=== PATIENT | male | born 1955 | race Two or more races ===

== ENCOUNTER 2017-02-27 16:22 | Inpatient (IN) | payer MEDICAID ==
[~2017-02-27] VITALS: Ht 170.2 cm; Wt 90.7 kg
[2017-02-27] MEDS ORDERED: Sodium Chloride 500ML 500 ML IV ONE (16:31)
[2017-02-27] MEDS ORDERED: HIBICLENS118 ML DT (16:50)
[2017-02-27] MEDS ORDERED: MAGNESIUM OXID500 M2 GT (16:50)
[2017-02-27] MEDS ORDERED: TYLENOL EXTRA500 MG GT (16:50)
[2017-02-27] MEDS ORDERED: ATORVASTATIN CA20 MG GT (16:50)
[2017-02-27] MEDS ORDERED: ALBUTEROL2.5 MG/3 M INH (16:50)
[2017-02-27] MEDS ORDERED: DOCUSATE SODIU100 MG GT (16:50)
[2017-02-27] MEDS ORDERED: UTI-STAT L3875 MG/31 GT (16:50)
[2017-02-27] MEDS ORDERED: METOPROLOL TART25 MG GT (16:50)
[2017-02-27] MEDS ORDERED: ARTIFICIAL TEAR15 ML BOTH EYES (16:50)
[2017-02-27] MEDS ORDERED: CYANOCOBALAMIN5 GM GT (16:50)
[2017-02-27] MEDS ORDERED: VITAMIN D400 INTLU GT (16:50)
[2017-02-27] MEDS ORDERED: FERROUS SULFAT325 MG GT (16:50)
[2017-02-27] MEDS ORDERED: PEPCID20 MG GT (16:50)
[2017-02-27] MEDS ORDERED: VITAMIN B COMP1 EAC2 GT (16:50)
[2017-02-27] MEDS ORDERED: AMITRIPTYLINE100 MG GT (16:50)
[2017-02-27] MEDS ORDERED: LISINOPRIL40 MG GT (16:50)
[2017-02-27] MEDS ORDERED: MECLIZINE HCL12.5 MG GT (16:50)
[2017-02-27 17:02] LABS: EOSINOPHILS % (AUTO) 6.4 % (0.0-3.0); HEMATOCRIT 40.5 % (42.0-52.0); HEMOGLOBIN 13.6 G/DL (14.2-18.0); LYMPHOCYTES % (AUTO) 34.6 % (20.0-45.0); MEAN CORPUSCULAR VOLUME 85 FL (80-99); MONOCYTES % (AUTO) 9.4 % (1.0-10.0); NEUTROPHILS % (AUTO) 48.5 % (45.0-75.0); PLATELET COUNT 208 K/UL (150-450); RED BLOOD COUNT 4.74 M/UL (4.70-6.10); RED CELL DISTRIBUTION WIDTH 12.7 % (11.6-14.8); WHITE BLOOD COUNT 5.6 K/UL (4.8-10.8)
[2017-02-27 17:03] VITALS: BP 131/75
[2017-02-27 17:09] LABS: ANION GAP 7 mmol/L (5-15); BLOOD UREA NITROGEN 11 mg/dL (7-18); CALCIUM 9.3 MG/DL (8.5-10.1); CARBON DIOXIDE 30 MMOL/L (21-32); CHLORIDE 103 MMOL/L (98-107); POTASSIUM 3.9 MMOL/L (3.5-5.1); SODIUM 140 MMOL/L (136-145)
[2017-02-27 17:23] LABS: ALANINE AMINOTRANSFERASE 14 U/L (12-78); ALBUMIN 3.7 G/DL (3.4-5.0); ALBUMIN/GLOBULIN RATIO 0.9 (1.0-2.7); ALKALINE PHOSPHATASE 90 U/L (46-116); ASPARTATE AMINO TRANSFERASE 15 U/L (15-37); BILIRUBIN,TOTAL 0.6 MG/DL (0.2-1.0); CKMB < 0.5 NG/ML (0.0-3.6); CREATINE KINASE 81 U/L (26-308)
[2017-02-27] MEDS: Nitroglycerin Subl 0.4mg tab SL PRN ×2 (18:16→18:24)
--- NOTE | 2017-02-27 18:20 | Emergency Room Report ---
History of Present Illness General Chief Complaint: Chest Pain Source: Patient, Medical Record Present Illness HPI 61-year-old male presents ED for evaluation. Patient complains to nursing facility complaining of chest pain. Started approximately 30 minutes prior to arrival. Sudden onset. External, pressure-like, 10 out of 10 initially. Nonradiating. Was given nitroglycerin by EMS and states the chest pain has since improved. States pain is now 7/10. Patient recently had a trach removed. Denies fevers or chills. Denies cough. No other aggravating or relieving factors. Denies any other associated symptoms Allergies: Coded Allergies: No Known Allergies (Unverified , 02/27/17) Patient History Past Medical History: DM, HTN, COPD, other - hemplegic Past Surgical History: none Pertinent Family History: none Social History: Denies: smoking, alcohol use, drug use Immunizations: UTD Reviewed Nursing Documentation: PMH: Agreed, PSxH: Agreed Nursing Documentation-PMH Hx Hypertension: Yes - Hyperlipidemia Hx COPD: Yes Hx Diabetes: Yes Hx Cerebrovascular Accident: Yes - Hemiplegia/Hemiparesis, Intracerebral Hemorrhage Review of Systems All Other Systems: negative except mentioned in HPI Physical Exam Vital Signs Date Time Temp Pulse Resp B/P (MAP) Pulse Ox O2 Delivery O2 Flow Rate FiO2 02/27/17 16:24 68 22 143/81 99 Room Air 02/27/17 17:03 98.0 Sp02 EP Interpretation: reviewed, normal General Appearance: no apparent distress, alert, GCS 15, non-toxic Head: normocephalic, atraumatic Eyes: bilateral eye normal inspection, bilateral eye PERRL ENT: hearing grossly normal, normal pharynx, no angioedema, normal voice Neck: full range of motion, supple/symm/no masses Respiratory: chest non-tender, lungs clear, normal breath sounds, speaking full sentences Cardiovascular #1: regular rate, rhythm, no edema Cardiovascular #2: 2+ carotid (R), 2+ carotid (L), 2+ radial (R), 2+ radial (L) , 2+ dorsalis pedis (R), 2+ dorsalis pedis (L) Gastrointestinal: normal bowel sounds, non tender, soft, non-distended, no guarding, no rebound Rectal: deferred Genitourinary: normal inspection, no CVA tenderness Musculoskeletal: back normal, gait/station normal, normal range of motion, non- tender Neurologic: alert, oriented x3, responsive, motor strength/tone normal, sensory intact, speech normal Psychiatric: judgement/insight normal, memory normal, mood/affect normal, no suicidal/homicidal ideation Reflexes: 3+ bicep (R), 3+ bicep (L), 3+ tricep (R), 3+ tricep (L), 3+ knee (R) , 3+ knee (L) Skin: normal color, no rash, warm/dry, well hydrated Lymphatic: no adenopathy Medical Decision Making Diagnostic Impression: Primary Impression: ACS (acute coronary syndrome) ER Course Hospital Course 61-year-old male presents ED complaining of chest pain, improved after NTG Differential diagnoses include: [place]/unstable angina, contusion, muscle strain, PTX, rib fracture Clinical course Patient placed on stretcher. on patient monitor. After initial history and physical I ordered labs, EKG, chest x-ray, NTG labs reviewed- no leukocytosis, hb/hct stable, electrolytes ok, trop 0.011 EKG - NSR, no acute ischemic changes interpreted by me Chest x-ray- cardiomegaly PMD Mariah Medina is aware patient is here and will be admitted to Dr Barreto ( assigned hospitalist) Case discussed with Dr. Barreto and he agreed to accept the patient to his service for further care and support I. I feel this is a highly complex case requiring extensive working including EKG/Rhythm strip, Xray/CT/US, Blood/urine lab work, repeat exams while in ED, and administration of strong opiates/narcotics for pain control, admission to hospital or close patient follow up. Diagnosis - ACS admitted to telemetry in serious condition Labs Test 02/27/17 16:40 White Blood Count 5.6 K/UL (4.8-10.8) Red Blood Count 4.74 M/UL (4.70-6.10) Hemoglobin 13.6 G/DL (14.2-18.0) Hematocrit 40.5 % (42.0-52.0) Mean Corpuscular Volume 85 FL (80-99) Mean Corpuscular Hemoglobin 28.7 PG (27.0-31.0) Mean Corpuscular Hemoglobin Concent 33.5 G/DL (32.0-36.0) Red Cell Distribution Width 12.7 % (11.6-14.8) Platelet Count 208 K/UL (150-450) Mean Platelet Volume 5.9 FL (6.5-10.1) Neutrophils (%) (Auto) 48.5 % (45.0-75.0) Lymphocytes (%) (Auto) 34.6 % (20.0-45.0) Monocytes (%) (Auto) 9.4 % (1.0-10.0) Eosinophils (%) (Auto) 6.4 % (0.0-3.0) Basophils (%) (Auto) 1.0 % (0.0-2.0) Sodium Level 140 MMOL/L (136-145) Potassium Level 3.9 MMOL/L (3.5-5.1) Chloride Level 103 MMOL/L (98-107) Carbon Dioxide Level 30 MMOL/L (21-32) Anion Gap 7 mmol/L (5-15) Blood Urea Nitrogen 11 mg/dL (7-18) Creatinine 1.0 MG/DL (0.55-1.30) Estimat Glomerular Filtration Rate > 60 mL/min (>60) Glucose Level 97 MG/DL (74-106) Calcium Level 9.3 MG/DL (8.5-10.1) Total Bilirubin 0.6 MG/DL (0.2-1.0) Aspartate Amino Transf (AST/SGOT) 15 U/L (15-37) Alanine Aminotransferase (ALT/SGPT) 14 U/L (12-78) Alkaline Phosphatase 90 U/L (46-116) Total Creatine Kinase 81 U/L (26-308) Creatine Kinase MB < 0.5 NG/ML (0.0-3.6) Creatine Kinase MB Relative Index 0.6 Troponin I 0.011 ng/mL (0.000-0.056) Pro-B-Type Natriuretic Peptide 127 pg/mL (0-125) Total Protein 8.0 G/DL (6.4-8.2) Albumin 3.7 G/DL (3.4-5.0) Globulin 4.3 g/dL Albumin/Globulin Ratio 0.9 (1.0-2.7) EKG Diagnostic Results Rate: normal Rhythm: NSR ST Segments: no acute changes ASA given to the pt in ED: No - given by ems Rhythm Strip Diag. Results EP Interpretation: yes Rhythm: NSR, no PVC's, no ectopy Chest X-Ray Diagnostic Results Chest X-Ray Diagnostic Results : Chest X-Ray Ordered: Yes # of Views/Limited/Complete: 1 View Indication: Chest Pain EP Interpretation: Yes Interpretation: no consolidation, no effusion, no pneumothorax, no acute cardiopulmonary disease, other - cardiomegaly Impression: Other - cardiomegaly Electronically Signed by: Electronically signed by Abel Roland MD Last Vital Signs Date Time Temp Pulse Resp B/P (MAP) Pulse Ox O2 Delivery O2 Flow Rate FiO2 02/27/17 17:03 98.0 61 18 131/75 97 Room Air Status: improved Disposition: ADMITTED INPATIENT Condition: Serious Referrals: MARIAH MEDINA (PCP) ABEL ROLAND M.D. Feb 27, 2017 18:20
[2017-02-27] MEDS ORDERED: Morphine Sulfate 2mg/ml Inj IVP ONE (18:30)
[2017-02-27] MEDS ORDERED: FERROUS SU300 MG/5 M GT (18:35)
[2017-02-27] MEDS ORDERED: MAGNESIUM OXID400 M1 GT (18:37)
[2017-02-27 18:39] VITALS: BP 120/79
[2017-02-27] MEDS ORDERED: ACETAMINOPHEN325 M1 ORAL (18:45)
[2017-02-27] MEDS ORDERED: FAMOTIDINE20 MG GT (18:45)
[2017-02-27] MEDS ORDERED: DUONEB 0.5-3(2.53 ML HHN (18:56)
[2017-02-27] MEDS ORDERED: VITAMIN D1000 UNI1 GT (19:00)
[2017-02-27 19:30] VITALS: BP 126/74
[2017-02-27 20:40] VITALS: BP 139/88
[2017-02-27] MEDS ORDERED: dilTIAZem HCl 25mg/5ml Inj IV PRN (20:45)
[2017-02-27] MEDS ORDERED: Morphine Sulfate 2mg/ml Inj IVP PRN (20:45)
[2017-02-27] MEDS ORDERED: Enalaprilat 2.5mg/2ml Inj IV PRN (20:45)
[2017-02-27] MEDS ORDERED: Ketorolac 30mg Inj IV PRN (20:45)
[2017-02-27] MEDS ORDERED: Nitroglycerin Subl 0.4mg tab SL PRN (20:45)
[2017-02-27] MEDS ORDERED: Miralax 17gm pkt GT PRN (20:45)
[2017-02-27] MEDS ORDERED: Albuterol/Ipratropium 3ml neb HHN PRN (20:45)
[2017-02-27] MEDS ORDERED: Miralax 17gm pkt ORAL PRN (21:00)
[2017-02-27] MEDS: Heparin 5000 units/ml inj SUBQ SCH (21:56)
[2017-02-28] VITALS: BP 115/75
--- NOTE | 2017-02-28 01:15 | Consultation ---
DATE OF CONSULTATION: 02/27/2017 CONSULTING PHYSICIAN: Lindsay Medina M.D. REFERRING PHYSICIAN: Nguyen Barreto M.D. REASON FOR ADMISSION: This is a medical consultation. I was asked by Dr. Barreto to assess this 61-year-old patient prior to admission to [facility] Cardiac Observation Unit. HISTORY OF PRESENT ILLNESS: The patient is a resident of an [facility] subacute unit where he has been in stable condition over the last year. 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 He developed respiratory failure, had to be intubated and placed on mechanical ventilation. He was unable to be weaned, underwent tracheostomy and gastrostomy, and referred to subacute unit. In the subacute unit, he was nearly a year, but recently, the patient extubated himself and remained stable, well-controlled blood pressure, well-controlled diabetes. However, on the day of admission, he developed retrosternal chest pain, which was pressure-like, radiating to his neck. That was relieved by nitroglycerin. He was transferred to [facility] ER where the chest pain recurred and again was relieved by nitroglycerin. Troponin was normal, but the patient was admitted for unstable angina and angina at rest. PAST SURGICAL HISTORY: The patient underwent tracheostomy several years ago. ALLERGIES: No known drug allergies. MEDICATIONS: The patient is on aspirin 162 mg daily, amitriptyline 10 mg at bedtime, and heparin 5000 units subcutaneously q.12 h. He is on temazepam 50 mg at bedtime. He is on albuterol sulfate and ipratropium bromide inhalation therapy every 6 hours. He is on nitroglycerin sublingual 0.4 mg on a p.r.n. basis. He is on Toradol 30 mg IV push q.6 h. p.r.n. for pain. He is on morphine sulfate 2 mg IV push q.4 h. p.r.n. He is on enalapril 2.5 mg IV and diltiazem 10 mg IV on a p.r.n. basis. FAMILY HISTORY: Noncontributory. SOCIAL HISTORY: He is single. He was born in [place] and lived in [place] for many years. 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 HABITS: The patient smoked 1 pack a day for nearly 30 years ago. He denied drinking. He denied the use of illicit drugs. REVIEW OF SYSTEMS: CARDIOVASCULAR: The patient has intermittent chest pain recently. He has no shortness of breath or palpitations. He developed some dizziness today. PULMONARY: The patient has chronic cough, chronic wheezing, and chronic expectoration. GASTROINTESTINAL: His appetite is moderate. His weight is stable. He has no dysphagia or dyspepsia. No bowel movement disorder. GENITOURINARY: The patient denied any dysuria, frequency, or incontinence. Nocturia is 0 to 2. JOINT: The patient denies any pain, swelling, stiffness, cold extremities, photosensitivity, dry eyes, or alopecia. CENTRAL NERVOUS SYSTEM: His sleep is of good quality. He has no numbness, tingling, seizure disorder, and has no headache. PHYSICAL EXAMINATION: VITAL SIGNS: Blood pressure is 120/74, his pulse is 68, respirations of 14, and temperature of 98.2. HEENT: Eyes were normal. Pupils were round, equal, and reactive to light. Sclerae were white. Conjunctivae were pink. Extraocular movements were normal. Temporal arteries were palpable bilaterally. There was no bilateral temporal wasting. Visual jaimes to confrontation. Neglect sign could not be assessed. ENT, mucous membranes were not dehydrated. Auditory canals were clear and tympanic membranes could not be visualized. Nasal cavity was not congested. Nasal septum was intact. Soft palate was free of ulcerations. Pharynx was clear from exudate or tonsillar hypertrophy. Uvula cody to phonation. Tongue was moist, midline, and normally papillated. NECK: Supple. There was no goiter. No mass. No lymphadenopathy. There was no JVD. No bruits. Carotid upstroke was 2+. LUNGS: Clear. HEART: PMI was at fifth left intercostal space in midclavicular line. There was normal S1 and normal S2. There was no murmur. No arrhythmia. No S3. No S4. No pericardial rub. ABDOMEN: Soft and nontender without organomegaly. There were no masses palpable. There were normal bowel sounds without bruits. There was no guarding. No rebound tenderness. No ascites. No hernia. No CVA tenderness. Liver span was 8 cm, mostly nontender. EXTREMITIES: No cyanosis, no clubbing, and no edema. Extremities were warm. NEUROLOGICAL EXAMINATION: Reflexes in biceps, triceps, and brachioradialis were symmetric and equal. Patellar retinacula were symmetric and equal. Plantar were in extension on the right and flexion on the left. Cranial nerves II through XII were symmetric and equal. Cerebellar function, gait, [id number] and rapid alternating movements were not performed and declined by the patient. There was no tremor. No nystagmus. No extrapyramidal rigidity. Sensory exam to pinprick, cotton touch, and position were grossly normal. Motor strength was 5/5 against resistance in upper and lower extremities in proximal and distal muscles. LABORATORY DATA: His hemoglobin is 13.6, hematocrit 40.5 with MCV of 85, WBC of 5.6, and platelets are 208. His BUN and creatinine was 11 and 1.0 respectively. His sodium is 140, potassium 3.9, chloride 103, and CO2 is 30. SGOT and SGPT and alkaline phosphatase were normal. His troponin was 0.011. ProBNP was 127. Albumin was 3.7 and globulin was 4.3. IMPRESSION: The patient developed angina are rest. Serial troponin, 2D echo, and chest x-ray have been already ordered by the primary care physician. Repeat laboratory tests will be done in the morning. Lindsay Medina M.D. DR: BRIAN JOB#: [id number] CC:
[2017-02-28 04:00] VITALS: BP 113/73
[2017-02-28 07:50] LABS: BASOPHILS % (AUTO) 0.9 % (0.0-2.0); EOSINOPHILS % (AUTO) 8.1 % (0.0-3.0); HEMATOCRIT 38.5 % (42.0-52.0); HEMOGLOBIN 12.8 G/DL (14.2-18.0); MEAN CORPUSCULAR VOLUME 87 FL (80-99); MONOCYTES % (AUTO) 9.1 % (1.0-10.0); NEUTROPHILS % (AUTO) 43.9 % (45.0-75.0); PLATELET COUNT 171 K/UL (150-450); RED BLOOD COUNT 4.44 M/UL (4.70-6.10); WHITE BLOOD COUNT 4.2 K/UL (4.8-10.8)
[2017-02-28 07:59] LABS: INR 1.1 (0.9-1.1)
[2017-02-28 08:00] VITALS: BP 129/77
[2017-02-28] MEDS: Lisinopril 20mg tab ORAL SCH (08:07)
[2017-02-28] MEDS: Heparin 5000 units/ml inj SUBQ SCH ×2 (08:07→21:11)
[2017-02-28] MEDS: Aspirin Baby 81mg ORAL SCH (08:07)
[2017-02-28 08:10] LABS: CHOLESTEROL 69 MG/DL (< 200); HDL CHOLESTEROL 27 MG/DL (40-60); TRIGLYCERIDES 84 MG/DL (30-150)
--- NOTE | 2017-02-28 08:26 | Diagnostic Imaging Report ---
Indication: Chest pain Technique: One view of the chest Comparison: none Findings: Patient is rotated to the right. The lungs and pleural spaces are clear. The heart size is normal. Impression: No acute process
[2017-02-28 12:00] VITALS: BP 103/76
--- NOTE | 2017-02-28 12:26 | History and Physical ---
History of Present Illness General Date patient seen: Feb 28, 2017 Reason for Hospitalization: Chest Pain Present Illness HPI 61-year-old male with hx of chronic respiratory failure, s/p trach ( removed now ) presented to ED for evaluation of chest pain. Started approximately 30 minutes prior to arrival. Sudden onset. External, pressure-like, 10 out of 10 initially. Nonradiating. Was given nitroglycerin by EMS and states the chest pain has since improved. States pain is now 7/10. Allergies: Coded Allergies: No Known Allergies (Unverified , 02/27/17) Medication History Scheduled Amitriptyline HCl (Amitriptyline HCl), 10 MG GT BEDTIME, (Reported) Atorvastatin Calcium* (Atorvastatin Calcium*), 20 MG GT BEDTIME, (Reported) Chlorhexidine Gluconate* (Hibiclens*), 15 ML DT BID, (Reported) Cholecalciferol (Vitamin D3)* (Vitamin D*), 5,000 UNIT GT DAILY, (Reported) Cran/Vitc/Mannose/Inulin/Brom (Uti-Stat Liquid), 3,875 MG GT BID, (Reported) Cyanocobalamin (Vitamin B-12) (Cyanocobalamin), 1,000 MCG GT DAILY, (Reported) Docusate Sodium* (Docusate Sodium*), 100 MG GT DAILY, (Reported) Famotidine (Pepcid), 20 MG GT EVERY 12 HOURS, (Reported) Ferrous Sulfate (Ferrous Sulfate), 330 MG GT DAILY, (Reported) Lisinopril* (Lisinopril*), 40 MG GT DAILY, (Reported) Magnesium Oxide (Magnesium Oxide), 400 MG GT BID, (Reported) Metoprolol Tartrate* (Metoprolol Tartrate*), 25 MG GT EVERY 12 HOURS, (Reported) Vitamin B Complex (Vitamin B Complex), 1 CAP GT DAILY, (Reported) Scheduled PRN Acetaminophen* (Tylenol Extra Strength*), 1,000 MG GT Q4HR PRN for Moderate Pain (Pain Scale 4-6), (Reported) Acetaminophen* (Acetaminophen 325MG Tablet*), 325 MG ORAL Q4H PRN for Mild Pain/ Temp > 100.5, (Reported) Dextran 70/Hypromellose (Artificial Tears Eye Drops*), 1 DROP BOTH EYES BID PRN for Dry Eyes, (Reported) Ipratropium/Albuterol Sulfate (DuoNeb 0.5-3(2.5)mg/3ml), 3 ML HHN Q6HR PRN for Shortness of Breath, (Reported) Meclizine Hcl* (Meclizine*), 12.5 MG GT TID PRN for VERTIGO, (Reported) Discontinued Medications Albuterol Sulfate* (Albuterol Sulfate Hhn*), 3 ML INH Q4H PRN for Shortness of Breath, (Reported) Discontinued Reason: Therapy completed Patient History Healthcare decision maker Resuscitation status Full Code Advanced Directive on File No Past Medical/Surgical History Past Medical/Surgical History: (1) Chronic respiratory failure (2) Feeding by G-tube (3) Diabetes mellitus (4) History of CVA (cerebrovascular accident) Physical Exam General Appearance: WD/WN Lines, tubes and drains: peripheral HEENT: normocephalic, anicteric Neck: non-tender, normal alignment Respiratory/Chest: chest wall non-tender, lungs clear Abdomen: normal bowel sounds Genitourinary/Rectal: normal rectal exam, normal prostate exam Skin Exam: normal pigmentation Last 24 Hour Vital Signs Date Time Temp Pulse Resp B/P (MAP) Pulse Ox O2 Delivery O2 Flow Rate FiO2 02/28/17 08:08 58 16 Room Air 21 02/28/17 08:07 129/77 02/28/17 08:00 97.9 63 18 129/77 98 Room Air 02/28/17 07:51 64 02/28/17 04:00 51 02/28/17 04:00 97.0 55 18 113/73 98 Room Air 02/28/17 00:00 97.3 55 20 115/75 98 Room Air 02/28/17 00:00 58 02/27/17 20:51 57 02/27/17 20:40 98.2 68 18 139/88 98 Room Air 02/27/17 19:55 98.2 68 14 126/74 98 Room Air 02/27/17 19:30 98.2 68 14 126/74 98 Room Air 02/27/17 18:39 71 14 120/79 97 Room Air 02/27/17 18:24 122/82 02/27/17 18:16 131/83 02/27/17 17:03 98.0 61 18 131/75 97 Room Air 02/27/17 17:01 61 18 Room Air 02/27/17 16:24 98.4 68 22 143/81 99 Room Air Intake and Output 02/27/17 02/28/17 19:00 07:00 Intake Total 500 ml 0 ml Balance 500 ml 0 ml Intake Oral 0 ml 0 ml IV Total 500 ml Laboratory Tests Test 02/27/17 16:40 02/27/17 21:15 02/28/17 07:10 White Blood Count 5.6 K/UL (4.8-10.8) 4.2 K/UL (4.8-10.8) L Red Blood Count 4.74 M/UL (4.70-6.10) 4.44 M/UL (4.70-6.10) L Hemoglobin 13.6 G/DL (14.2-18.0) L 12.8 G/DL (14.2-18.0) L Hematocrit 40.5 % (42.0-52.0) L 38.5 % (42.0-52.0) L Mean Corpuscular Volume 85 FL (80-99) 87 FL (80-99) Mean Corpuscular Hemoglobin 28.7 PG (27.0-31.0) 28.7 PG (27.0-31.0) Mean Corpuscular Hemoglobin Concent 33.5 G/DL (32.0-36.0) 33.1 G/DL (32.0-36.0) Red Cell Distribution Width 12.7 % (11.6-14.8) 13.0 % (11.6-14.8) Platelet Count 208 K/UL (150-450) 171 K/UL (150-450) Mean Platelet Volume 5.9 FL (6.5-10.1) L 6.0 FL (6.5-10.1) L Neutrophils (%) (Auto) 48.5 % (45.0-75.0) 43.9 % (45.0-75.0) L Lymphocytes (%) (Auto) 34.6 % (20.0-45.0) 38.0 % (20.0-45.0) Monocytes (%) (Auto) 9.4 % (1.0-10.0) 9.1 % (1.0-10.0) Eosinophils (%) (Auto) 6.4 % (0.0-3.0) H 8.1 % (0.0-3.0) H Basophils (%) (Auto) 1.0 % (0.0-2.0) 0.9 % (0.0-2.0) Sodium Level 140 MMOL/L (136-145) Potassium Level 3.9 MMOL/L (3.5-5.1) Chloride Level 103 MMOL/L (98-107) Carbon Dioxide Level 30 MMOL/L (21-32) Anion Gap 7 mmol/L (5-15) Blood Urea Nitrogen 11 mg/dL (7-18) Creatinine 1.0 MG/DL (0.55-1.30) Estimat Glomerular Filtration Rate > 60 mL/min (>60) Glucose Level 97 MG/DL (74-106) Calcium Level 9.3 MG/DL (8.5-10.1) Total Bilirubin 0.6 MG/DL (0.2-1.0) Aspartate Amino Transf (AST/SGOT) 15 U/L (15-37) Alanine Aminotransferase (ALT/SGPT) 14 U/L (12-78) Alkaline Phosphatase 90 U/L (46-116) Total Creatine Kinase 81 U/L (26-308) Creatine Kinase MB < 0.5 NG/ML (0.0-3.6) Creatine Kinase MB Relative Index 0.6 Troponin I 0.011 ng/mL (0.000-0.056) 0.012 ng/mL (0.000-0.056) 0.004 ng/mL (0.000-0.056) Pro-B-Type Natriuretic Peptide 127 pg/mL (0-125) H Total Protein 8.0 G/DL (6.4-8.2) Albumin 3.7 G/DL (3.4-5.0) Globulin 4.3 g/dL Albumin/Globulin Ratio 0.9 (1.0-2.7) L Prothrombin Time 11.2 SEC (9.30-11.50) Prothromb Time International Ratio 1.1 (0.9-1.1) Activated Partial Thromboplast Time 30 SEC (23-33) C-Reactive Protein, Quantitative 0.7 mg/dL (0.00-0.90) Triglycerides Level 84 MG/DL (30-150) Cholesterol Level 69 MG/DL (< 200) LDL Cholesterol 36 mg/dL (<100) HDL Cholesterol 27 MG/DL (40-60) L Cholesterol/HDL Ratio 2.6 (3.3-4.4) L Thyroid Stimulating Hormone (TSH) 2.487 uiU/mL (0.358-3.740) Height (Feet): 5 Height (Inches): 7.00 Weight (Pounds): 200 Medications Current Medications Medications (Trade) Dose Ordered Sig/Neda Route PRN Reason Start Time Stop Time Status Last Admin Dose Admin Acetaminophen (Tylenol) 650 mg Q4H PRN ORAL FEVER 02/27/17 20:45 03/29/17 20:44 Albuterol/ Ipratropium (Albuterol/ Ipratropium) 3 ml Q4H PRN HHN Shortness of Breath 02/27/17 20:45 03/04/17 20:44 Amitriptyline HCl (Elavil) 10 mg BEDTIME ORAL 02/27/17 22:00 03/29/17 21:59 02/27/17 21:52 Aspirin (ASA) 162 mg DAILY ORAL 02/28/17 09:00 03/30/17 08:59 02/28/17 08:07 Diltiazem HCl (Cardizem) 10 mg Q1H PRN IV HR>120 02/27/17 20:45 03/29/17 20:44 Enalaprilat (Vasotec) 2.5 mg Q6H PRN IV sbp more than 160 02/27/17 20:45 03/29/17 20:44 Heparin Sodium (Porcine) (Heparin 5000 units/ml) 5,000 units EVERY 12 HOURS SUBQ 02/27/17 22:00 03/29/17 21:59 02/27/17 21:56 Lisinopril (Prinivil) 40 mg DAILY ORAL 02/28/17 09:00 03/30/17 08:59 02/28/17 08:07 Morphine Sulfate (Morphine Sulfate) 2 mg Q4H PRN IVP severe Pain (Pain Scale 7-10) 02/27/17 20:45 03/06/17 20:44 Nitroglycerin (Ntg) 0.4 mg Every 5 Minutes PRN SL Prn Chest Pain 02/27/17 20:45 03/29/17 20:44 Ondansetron HCl (Zofran) 4 mg Q6H PRN IVP Nausea & Vomiting 02/27/17 20:45 03/29/17 20:44 Polyethylene Glycol (Miralax) 17 gm DAILYPRN PRN ORAL Constipation 02/27/17 21:00 03/29/17 20:44 Temazepam (Restoril) 15 mg HSPRN PRN ORAL Insomnia 02/27/17 21:00 03/06/17 20:44 Assessment/Plan Problem List: (1) ACS (acute coronary syndrome) ICD Codes: I24.9 - Acute ischemic heart disease, unspecified SNOMED: 653968016 (2) History of CVA (cerebrovascular accident) ICD Codes: Z86.73 - Personal history of transient ischemic attack (TIA), and cerebral infarction without residual deficits SNOMED: 111232506 (3) Chronic respiratory failure ICD Codes: J96.10 - Chronic respiratory failure, unspecified whether with hypoxia or hypercapnia SNOMED: 82504173 (4) Feeding by G-tube ICD Codes: Z93.1 - Gastrostomy status SNOMED: 748361584, 098919468 (5) Diabetes mellitus ICD Codes: E11.9 - Type 2 diabetes mellitus without complications SNOMED: 75107779 Assessment/Plan serial ekg, troponin cardiology evaluation check troponin continue gtube feeing dvt prophylaxis ERNESTINA WATTS Feb 28, 2017 12:26
[2017-02-28 16:10] VITALS: BP 109/70
--- NOTE | 2017-02-28 18:46 | Cardiology Progress Note ---
Assessment/Plan Assessment/Plan all trop neg ekg neg atypcial cp sig no rf for cad perfusion imaging in am home if neg [id number] Objective Last 24 Hour Vital Signs Date Time Temp Pulse Resp B/P (MAP) Pulse Ox O2 Delivery O2 Flow Rate FiO2 02/28/17 17:00 54 02/28/17 16:10 97.9 62 18 109/70 98 Room Air 02/28/17 12:00 97.9 51 18 103/76 98 Room Air 02/28/17 11:31 59 02/28/17 08:08 58 16 Room Air 21 02/28/17 08:07 129/77 02/28/17 08:00 97.9 63 18 129/77 98 Room Air 02/28/17 07:51 64 02/28/17 04:00 51 02/28/17 04:00 97.0 55 18 113/73 98 Room Air 02/28/17 00:00 97.3 55 20 115/75 98 Room Air 02/28/17 00:00 58 02/27/17 20:51 57 02/27/17 20:40 98.2 68 18 139/88 98 Room Air 02/27/17 19:55 98.2 68 14 126/74 98 Room Air 02/27/17 19:30 98.2 68 14 126/74 98 Room Air Intake and Output 02/27/17 02/28/17 19:00 07:00 Intake Total 500 ml 0 ml Balance 500 ml 0 ml Intake Oral 0 ml 0 ml IV Total 500 ml Laboratory Tests Test 02/27/17 21:15 02/28/17 07:10 Troponin I 0.012 ng/mL (0.000-0.056) 0.004 ng/mL (0.000-0.056) White Blood Count 4.2 K/UL (4.8-10.8) L Red Blood Count 4.44 M/UL (4.70-6.10) L Hemoglobin 12.8 G/DL (14.2-18.0) L Hematocrit 38.5 % (42.0-52.0) L Mean Corpuscular Volume 87 FL (80-99) Mean Corpuscular Hemoglobin 28.7 PG (27.0-31.0) Mean Corpuscular Hemoglobin Concent 33.1 G/DL (32.0-36.0) Red Cell Distribution Width 13.0 % (11.6-14.8) Platelet Count 171 K/UL (150-450) Mean Platelet Volume 6.0 FL (6.5-10.1) L Neutrophils (%) (Auto) 43.9 % (45.0-75.0) L Lymphocytes (%) (Auto) 38.0 % (20.0-45.0) Monocytes (%) (Auto) 9.1 % (1.0-10.0) Eosinophils (%) (Auto) 8.1 % (0.0-3.0) H Basophils (%) (Auto) 0.9 % (0.0-2.0) Prothrombin Time 11.2 SEC (9.30-11.50) Prothromb Time International Ratio 1.1 (0.9-1.1) Activated Partial Thromboplast Time 30 SEC (23-33) C-Reactive Protein, Quantitative 0.7 mg/dL (0.00-0.90) Triglycerides Level 84 MG/DL (30-150) Cholesterol Level 69 MG/DL (< 200) LDL Cholesterol 36 mg/dL (<100) HDL Cholesterol 27 MG/DL (40-60) L Cholesterol/HDL Ratio 2.6 (3.3-4.4) L Thyroid Stimulating Hormone (TSH) 2.487 uiU/mL (0.358-3.740) GUICHO GILMAN Feb 28, 2017 18:46
[2017-02-28] MEDS ORDERED: Lexiscan 0.4mg/5ml syringe IV SCH (19:00)
[2017-02-28 20:00] VITALS: BP 113/74
[2017-02-28] MEDS: NovoLOG Insulin Flexpen SUBQ SCH (21:13)
--- NOTE | 2017-02-28 23:45 | Progress Note ---
DATE: 02/28/2017 SUBJECTIVE: The patient denied any chest pain, shortness of breath, palpitations, or dizziness. PHYSICAL EXAMINATION: VITAL SIGNS: Blood pressure is 109/70, his pulse is 62, respirations were 18, and temperature 97.9. HEENT: Eyes were normal. ENT, mucous membranes were moist and intact. NECK: Supple with no JVD without lymph nodes. LUNGS: Clear. HEART: Normal sounds with regular heart beats. ABDOMEN: Soft and nontender with normal bowel sounds. EXTREMITIES: Warm without cyanosis, clubbing, or edema. LABORATORY DATA: Hemoglobin is 12.8, hematocrit 38.5 with MCV of 87, WBC of 4.2, and platelets are 171,000. His BUN and creatinine are not done. His troponin was 0.04. His ProBNP is 127. His LDL is 36. His total CK is 81. His chest x-ray showed no active disease. IMPRESSION: The patient had negative troponin and negative EKG. The only positive factor is response to nitroglycerin and the fact that he has respiratory failure and previously cerebrovascular accident and high blood pressure. PLAN: The patient is scheduled to undergo CT angiogram. If CT angiogram is normal, the patient can be discharged back to the extended care facility. Lindsay Medina M.D. DR: RIRI JOB#: [id number] CC:
[2017-03-01] VITALS: BP 110/67
--- NOTE | 2017-03-01 03:30 | Consultation ---
DATE OF CONSULTATION: 02/28/2017 CARDIOLOGY CONSULTATION CONSULTING PHYSICIAN: Tristian Sousa M.D. REFERRING PHYSICIAN: Nguyen Barreto M.D. REASON FOR REFERRAL: Chest pain. HISTORY OF PRESENT ILLNESS: This is a very unfortunate middle-aged gentleman, who is a resident of convalescent facility. The patient indicates he started having some pain in the front of the chest, both right and left side, yesterday at about 4 o'clock. The pain was initially very severe and gradually has been subsiding. It has been intermittently present, but is less today than it was yesterday. No relieving or exacerbating factors are noted by the patient except for the fact that initially when he would move around, he would that the pain would get worse. He is nonambulatory. He is bedridden and he has just had his trach decannulated recently as of Sunday. Anyway, he presented to the emergency room by paramedics with those complaints and was subsequently admitted to the hospital. In the invasive cardiologist run sheet, he indicates that the pain was going on for approximately 5 minutes, 8/10, nonradiating, sharp pain. No shortness of breath. There is no PND or orthopnea. He uses one pillow. He has head of bed elevated up at times and he states at times flat when he lies down. No heart pounding or palpitations. There is no dizziness or lightheadedness. He does not stand. PAST MEDICAL HISTORY: According to the chart is positive for history of respiratory failure, history of tracheostomy, dysphagia, chronic obstructive pulmonary disease, non-traumatic intracerebral hemorrhage, essential hypertension, diabetes mellitus, hyperlipidemia, hemiplegia, gastroesophageal reflux disease, and pneumonia history. The patient has history of left thalamic bleed with 4.5-cm hematoma on a CT scan . He initially was admitted to [facility], was intubated, and was found to be nonsurgical candidate and transferred eventually to a different hospital for further care. He had been ventilator dependent until recently where his trach was decannulated according to the records. ALLERGIES: The patient is not allergic to any medication. SOCIAL HISTORY: He does not smoke or drink alcoholic beverages. He lives in a convalescent facility. REVIEW OF SYSTEMS: GASTROINTESTINAL: Negative although he has had some constipation. GENITOURINARY: Negative. PULMONARY: There is some nasal congestion. CONSTITUTIONAL: Negative. PHYSICAL EXAMINATION: GENERAL: Shows to be a middle-aged gentleman, in no respiratory distress. Trach site is dressed. NECK: Supple. No jugular venous distention. LUNGS: Clear to auscultation and percussion. CARDIAC: S1 is normal. S2 is normal. Regular rate and rhythm. No heaves, thrills, or gallops noted. ABDOMEN: Soft, nontender. Positive bowel sounds. EXTREMITIES: There is no clubbing, cyanosis, or edema. NEUROLOGIC: He is awake, alert, responsive, and in no apparent respiratory distress. LABORATORY VALUES: Telemetry is unremarkable, all sinus and his electrocardiogram also is sinus rhythm and no ST or T-wave abnormalities being noted. Blood tests show white count of 4.2, hemoglobin 12.8, and platelet count 171,000. His cardiac enzymes are all negative. His proBNP is 127. Sodium is 140, potassium 3.9, chloride 103, bicarbonate 30, BUN of 11, creatinine 1.0, and glucose of 97. Liver function tests are all normal and he has total cholesterol of 69 with LDL of 27 and HDL of 29. TSH of 2.47. His INR is 1.1 and PTT of 30. Chest x-ray reportedly shows no acute processes. ASSESSMENT AND PLAN: 1. Atypical chest pain. 2. History of multiple medical problems including diabetes and hypertension. Dr. Barreto, this patient was seen in cardiac consultation. The patient is bedbound and is nonambulatory. His electrocardiogram is unremarkable. He has so many risk factors for coronary artery disease. I think perfusion imaging may not be reasonable to perform. Tristian Sousa M.D. DR: MILEY JOB#: [id number] CC:
[2017-03-01 04:00] VITALS: BP 112/74
[2017-03-01] MEDS: NovoLOG Insulin Flexpen SUBQ SCH ×4 (06:30→21:02)
[2017-03-01 08:17] VITALS: BP 113/70
[2017-03-01] MEDS: Lisinopril 20mg tab ORAL SCH (08:30)
[2017-03-01] MEDS: Heparin 5000 units/ml inj SUBQ SCH ×2 (08:30→21:02)
[2017-03-01] MEDS: Aspirin Baby 81mg ORAL SCH (08:30)
[2017-03-01] MEDS ORDERED: Lexiscan 0.4mg/5ml syringe IV SCH (09:00)
[2017-03-01 12:00] VITALS: BP 126/86
--- NOTE | 2017-03-01 12:19 | Pulmonology Progress Note ---
Assessment/Plan Problems: (1) ACS (acute coronary syndrome) (2) History of CVA (cerebrovascular accident) (3) Chronic respiratory failure (4) Feeding by G-tube (5) Diabetes mellitus Assessment/Plan stress study pending f/u cardiology recommendations check echo sliding scale. Subjective ROS Limited/Unobtainable: No Constitutional: Reports: no symptoms HEENT: Repors: no symptoms Allergies: Coded Allergies: No Known Allergies (Unverified , 02/27/17) Objective Last 24 Hour Vital Signs Date Time Temp Pulse Resp B/P (MAP) Pulse Ox O2 Delivery O2 Flow Rate FiO2 03/01/17 08:30 113/70 03/01/17 08:17 97.9 74 18 113/70 98 Room Air 03/01/17 07:27 61 03/01/17 07:12 70 18 Room Air 21 03/01/17 04:00 97.7 76 20 112/74 95 Room Air 03/01/17 04:00 61 03/01/17 00:00 97.9 61 20 110/67 99 Room Air 03/01/17 00:00 63 03/01/17 00:00 97.9 61 20 110/67 99 Room Air 02/28/17 20:00 97.1 64 20 113/74 98 Room Air 02/28/17 20:00 58 02/28/17 19:38 62 16 Room Air 02/28/17 17:00 54 02/28/17 16:10 97.9 62 18 109/70 98 Room Air Intake and Output 02/28/17 03/01/17 19:00 07:00 Intake Total 440 ml Output Total 750 ml 800 ml Balance -310 ml -800 ml Intake Oral 340 ml Free Water 100 ml Output Urine Total 750 ml 800 ml # Voids 2 General Appearance: WD/WN HEENT: normocephalic, atraumatic Respiratory/Chest: chest wall non-tender, lungs clear Cardiovascular: normal peripheral pulses, normal rate Abdomen: normal bowel sounds, soft, non tender Genitourinary: normal external genitalia Extremities: no cyanosis Skin: no lesions Neurologic/Psychiatric: group contract analyst II-XII grossly normal Lymphatic: no neck adenopathy Microbiology Date/Time Source Procedure Growth Status 02/27/17 17:30 Nasal Nares MRSA Culture - Final NO METHICILLIN RESISTANT STAPH AUREUS... Complete 02/27/17 17:30 Rectum VRE Culture - Final Enterococcus Faecalis Complete Laboratory Tests 03/01/17 07:30: Troponin I 0.003 Current Medications Medications (Trade) Dose Ordered Sig/Neda Route PRN Reason Start Time Stop Time Status Last Admin Dose Admin Acetaminophen (Tylenol) 650 mg Q4H PRN ORAL FEVER 02/27/17 20:45 03/29/17 20:44 Albuterol/ Ipratropium (Albuterol/ Ipratropium) 3 ml Q4H PRN HHN Shortness of Breath 02/27/17 20:45 03/04/17 20:44 Amitriptyline HCl (Elavil) 10 mg BEDTIME ORAL 02/27/17 22:00 03/29/17 21:59 02/28/17 21:10 Aspirin (ASA) 162 mg DAILY ORAL 02/28/17 09:00 03/30/17 08:59 03/01/17 08:30 Dextrose (Dextrose 50%) STAT PRN IV Hypoglycemia 02/28/17 17:00 03/30/17 16:59 Diltiazem HCl (Cardizem) 10 mg Q1H PRN IV HR>120 02/27/17 20:45 03/29/17 20:44 Enalaprilat (Vasotec) 2.5 mg Q6H PRN IV sbp more than 160 02/27/17 20:45 03/29/17 20:44 Heparin Sodium (Porcine) (Heparin 5000 units/ml) 5,000 units EVERY 12 HOURS SUBQ 02/27/17 22:00 03/29/17 21:59 02/28/17 21:11 Insulin Aspart (NovoLOG) BEFORE MEALS AND HS SUBQ 02/28/17 21:00 03/30/17 20:59 02/28/17 21:13 Lisinopril (Prinivil) 40 mg DAILY ORAL 02/28/17 09:00 03/30/17 08:59 02/28/17 08:07 Morphine Sulfate (Morphine Sulfate) 2 mg Q4H PRN IVP severe Pain (Pain Scale 7-10) 02/27/17 20:45 03/06/17 20:44 Nitroglycerin (Ntg) 0.4 mg Every 5 Minutes PRN SL Prn Chest Pain 02/27/17 20:45 03/29/17 20:44 Ondansetron HCl (Zofran) 4 mg Q6H PRN IVP Nausea & Vomiting 02/27/17 20:45 03/29/17 20:44 Polyethylene Glycol (Miralax) 17 gm DAILYPRN PRN ORAL Constipation 02/27/17 21:00 03/29/17 20:44 Regadenoson (Lexiscan) 0.4 mg ONCE IV 03/01/17 09:00 03/31/17 08:59 03/01/17 12:04 Temazepam (Restoril) 15 mg HSPRN PRN ORAL Insomnia 02/27/17 21:00 03/06/17 20:44 ERNESTINA WATTS Mar 01, 2017 12:19
[2017-03-01 13:22] LABS: BASOPHILS % (AUTO) 0.9 % (0.0-2.0); EOSINOPHILS % (AUTO) 5.4 % (0.0-3.0); HEMATOCRIT 40.6 % (42.0-52.0); LYMPHOCYTES % (AUTO) 36.1 % (20.0-45.0); MEAN CORPUSCULAR VOLUME 88 FL (80-99); MONOCYTES % (AUTO) 7.6 % (1.0-10.0); NEUTROPHILS % (AUTO) 50.1 % (45.0-75.0); PLATELET COUNT 175 K/UL (150-450); RED BLOOD COUNT 4.63 M/UL (4.70-6.10); RED CELL DISTRIBUTION WIDTH 12.8 % (11.6-14.8); WHITE BLOOD COUNT 5.3 K/UL (4.8-10.8)
--- NOTE | 2017-03-01 16:30 | Diagnostic Imaging Report ---
Indications: Chest pain Technique: Single day single isotope protocol utilized. Initially, resting images obtained using IV administration 10.9 millicuries 99M technetium Myoview. Subsequently, patient underwent lexiscan stress testing. See cardiology report for details. During adenosine infusion, IV administration 32.2 mCi 99 M technetium Myoview. SPECT and planar images obtained. SPECT images gated to 8 phases of the cardiac cycle were also obtained, and reformatted into cine images for evaluation of ejection fraction. Comparison: none Findings: Per cardiology report, patient experienced no symptoms. Per cardiology report, resting EKG demonstrates normal sinus rhythm. No ST-T wave changes were demonstrated. Imaging demonstrates no fixed nor reversible poststress perfusion defects. Normal cardiac chamber size. Calculated post stress ejection fraction 77%. No focal wall motion abnormality demonstrated Impression: Nonischemic clinical response to pharmacologic stress, per cardiology report Nonischemic electrocardiographic response to pharmacologic stress, per cardiology report No imaging findings to suggest ischemia, at level of stress achieved. Calculated post stress ejection fraction greater than 70%
[2017-03-01 16:49] VITALS: BP 130/85
--- NOTE | 2017-03-01 18:16 | Cardiology Progress Note ---
Assessment/Plan Assessment/Plan 1. Atypical chest pain. 2. History of multiple medical problems including diabetes and hypertension. stress test neg ekg neg trop neg ok to dc form cadiac view poitn Subjective Cardiovascular: Denies: chest pain, lightheadedness Respiratory: Denies: shortness of breath Gastrointestinal/Abdominal: Denies: abdomen distended Genitourinary: Denies: burning Objective Last 24 Hour Vital Signs Date Time Temp Pulse Resp B/P (MAP) Pulse Ox O2 Delivery O2 Flow Rate FiO2 03/01/17 16:49 97.9 86 18 130/85 98 Room Air 03/01/17 15:00 63 03/01/17 12:00 97.9 72 18 126/86 98 Room Air 03/01/17 11:39 71 03/01/17 08:30 113/70 03/01/17 08:17 97.9 74 18 113/70 98 Room Air 03/01/17 07:27 61 03/01/17 07:12 70 18 Room Air 21 03/01/17 04:00 97.7 76 20 112/74 95 Room Air 03/01/17 04:00 61 03/01/17 00:00 97.9 61 20 110/67 99 Room Air 03/01/17 00:00 63 03/01/17 00:00 97.9 61 20 110/67 99 Room Air 02/28/17 20:00 97.1 64 20 113/74 98 Room Air 02/28/17 20:00 58 02/28/17 19:38 62 16 Room Air General Appearance: no apparent distress, alert Neck: supple Cardiovascular: normal rate, regular rhythm Respiratory/Chest: lungs clear, normal breath sounds Abdomen: normal bowel sounds, non tender Extremities: no swelling Intake and Output 02/28/17 03/01/17 19:00 07:00 Intake Total 440 ml Output Total 750 ml 800 ml Balance -310 ml -800 ml Intake Oral 340 ml Free Water 100 ml Output Urine Total 750 ml 800 ml # Voids 2 Laboratory Tests Test 03/01/17 07:30 White Blood Count 5.3 K/UL (4.8-10.8) Red Blood Count 4.63 M/UL (4.70-6.10) L Hemoglobin 13.0 G/DL (14.2-18.0) L Hematocrit 40.6 % (42.0-52.0) L Mean Corpuscular Volume 88 FL (80-99) Mean Corpuscular Hemoglobin 28.2 PG (27.0-31.0) Mean Corpuscular Hemoglobin Concent 32.2 G/DL (32.0-36.0) Red Cell Distribution Width 12.8 % (11.6-14.8) Platelet Count 175 K/UL (150-450) Mean Platelet Volume 5.7 FL (6.5-10.1) L Neutrophils (%) (Auto) 50.1 % (45.0-75.0) Lymphocytes (%) (Auto) 36.1 % (20.0-45.0) Monocytes (%) (Auto) 7.6 % (1.0-10.0) Eosinophils (%) (Auto) 5.4 % (0.0-3.0) H Basophils (%) (Auto) 0.9 % (0.0-2.0) Troponin I 0.003 ng/mL (0.000-0.056) Microbiology Date/Time Source Procedure Growth Status 02/27/17 17:30 Nasal Nares MRSA Culture - Final NO METHICILLIN RESISTANT STAPH AUREUS... Complete 02/27/17 17:30 Rectum VRE Culture - Final Enterococcus Faecalis Complete GUICHO GILMAN Mar 01, 2017 18:16
[2017-03-01 20:00] VITALS: BP 137/80
--- NOTE | 2017-03-02 11:17 | Discharge Summary ---
Discharge Summary Hospital Course Date of Admission Feb 27, 2017 at 18:03 Date of Discharge Mar 01, 2017 at 21:45 Admitting Diagnosis ACUTE CORONARY SYNDROME MARIJA Hale is a 61 year old male who was admitted on Feb 27, 2017 at 18 :03 for Acute Coronary Syndrome Hospital Course [id number] Discharge Discharge Disposition Patient was discharged to SNF/Subacute Facility(03) Discharge Diagnoses: Doris Dalal NP Mar 02, 2017 11:17
--- NOTE | 2017-03-02 22:45 | Discharge Summary 2 SIG ---
DATE OF ADMISSION: 02/27/2017 DATE OF DISCHARGE: 03/01/2017 CONSULTANTS: 1. Tristian Sousa M.D. 2. Lindsay Medina M.D. BRIEF HOSPITAL COURSE: The patient is a 61-year-old male with history of chronic respiratory failure, status post trach, which is now removed, presented to ED for evaluation of chest pain that started 30 minutes prior to arrival. Symptom was a sudden onset and pressure like 10/10, nonradiating. He was given nitroglycerin by EMS with improvement of pain. He has a past medical history significant for a cerebrovascular accident in the mid cerebral artery with right hemiplegia and aphasia, history of diabetes mellitus, hypertension, and with G-tube. He was transported to [facility] where he again had recurrent pain. Evaluation done showed no leukocytosis. Initial troponin was 0.011. EKG was in normal sinus rhythm with no acute ischemic changes. Chest x-ray done showed no acute process. Due to his risk factors, he was admitted to telemetry for evaluation of acute coronary syndrome. He underwent cardiac evaluation with Dr. Sousa. Thyroid was normal. Lipid was checked. LDL was 36. Cardiac troponins were negative. He underwent myocardial perfusion scan results, however, nonischemic. There was no imaging finding to suggest ischemia at the level of stress achieved with calculated post stress ejection fraction greater than 70%. He was then cleared for discharge back to SNF. FINAL DIAGNOSES: 1. Atypical chest pain. Negative for myocardial infarction. 2. Cerebrovascular accident with right-sided hemiplegia. 3. Chronic respiratory failure. 4. Hypertension. 5. Diabetes mellitus type 2. DISPOSITION: The patient was discharged back to [facility]. DISCHARGE MEDICATIONS: Refer to medication list. Nguyen Barreto M.D. I have been assigned to dictate discharge summary on this account and I was not involved in the patient's management. Doris Dalal N.P. DR: MARCELLO JOB#: [id number] CC: JUWAN
--- NOTE | 2017-03-05 11:24 | Cardiology Report ---
APPROVED REPORT EXAM: Two-dimensional and M-mode echocardiogram with Doppler and color Doppler. INDICATION Left Ventircular Function Technically difficult and limited study due to poor parasternal acoustical windows. Study quality precludes accurate assessment of regional wall motion. M-mode measurements of left ventricle not obtainable due to cardiac position (angle) Normal left ventricular chamber size, systolic function and wall motion to extent visualized. Left ventricular ejection fraction estimated to be grossly normal. No evidence of left ventricular hypertrophy. Anterior Echo-free space, may be due to pericardial fat or effusion. All other cardiac chamber sizes are within normal limits. Focal aortic valve sclerosis with adequate cusp excursion. Thickened mitral valve leaflets with normal excursion. Mitral annulus and aortic root calcification. Pulmonic valve not visualized. Tricuspid valve not well visualized. Subcostal views not obtained. A color flow and spectral Doppler study was performed and revealed: No aortic insufficiency. No mitral regurgitation. Mitral diastolic velocities suggest mild left ventricular diastolic dysfunction (Grade I). Trace tricuspid regurgitation.
--- NOTE | 2017-03-07 18:36 | Cardiology Report ---
APPROVED REPORT EKG Measurement Heart [id number] Atrial flutter with variable AV block Abnormal ECG
--- NOTE | 2017-03-09 00:20 | Physician Query ---
--------- THIS DOCUMENT IS A PERMANENT PART OF THE MEDICAL RECORD --------- PLEASE COMPLETE THE DOCUMENT BEFORE SIGNING Dear Dr. WATTS Date: 03-08-2017 Experimental Preflight Mechanic/CDS' Name:VEGA FOX, CCS Exercise your independent professional judgment when responding to query. Questions asked do not imply particular answer is desired or expected. We greatly appreciate your clarification on this issue. Clinical Documentation States:BRIEF HOSPITAL COURSE: The patient is a 61-year-old male with history of chronic respiratory failure, status post trach, which is now removed,presented to ED for evaluation of chest pain that started 30 minutes prior to arrival. Evaluation done showed no leukocytosis. Initial troponin was 0.011. EKG was in normal sinus rhythm with no acute ischemic changes. Chest x-ray done showed no acute process. Due to his risk factors, he was admitted to telemetry for evaluation of acute coronary syndrome. He underwent cardiac evaluation with Dr. Sousa. Thyroid was normal. Lipid was checked. LDL was 36. Cardiac troponins were negative. He underwent myocardial perfusion scan results , however, nonischemic. post stress ejection fraction greater than 70%. FINAL DIAGNOSES: 1. Atypical chest pain. Negative for myocardial infarction. 2. Cerebrovascular accident with right-sided hemiplegia. 3. Chronic respiratory failure. 4. Hypertension. 5. Diabetes mellitus type 2. Please document the suspected etiology of Chest Pain: a.Type: []Cardiac []Non-cardiac []Unspecified b.Etiology - cardiac [] Aortic dissection []Mitral valve prolapsed [] Acute myocardial infarction []Spasm of coronary arteries [] Coronary Artery Disease []Pericarditis c.Etiology - non-cardiac [] Anxiety []Pleurisy [] Cancer []Pneumonia, type [] Costochondritis []Pneumothorax [] GERD/Esophagitis []Pulmonary embolism [] Unable to determine []Other: Please also document in your Progress Notes and/or Discharge Summary and indicate if the condition was present on admission. MIRALI ZARRABI, M.D. DATE & TIME [facility]
== END 2017-03-01 21:45 | DRG 243 ==
LOC: EDBD 16:22 → EMR 16:47 → 2E 18:03 → EDBEDREQ 18:24
DX: K21.9 Gastro-esophageal reflux disease without esophagitis (principal); J96.10 Chronic respiratory failure, unspecified whether with hypoxia or hypercapnia; R13.10 Dysphagia, unspecified; Z93.1 Gastrostomy status; M94.0 Chondrocostal junction syndrome [Tietze]; J44.9 Chronic obstructive pulmonary disease, unspecified; E11.9 Type 2 diabetes mellitus without complications; I10 Essential (primary) hypertension; E78.5 Hyperlipidemia, unspecified; Z87.891 Personal history of nicotine dependence; Z79.82 Long term (current) use of aspirin; Z86.73 Personal history of transient ischemic attack (TIA), and cerebral infarction without residual deficits
CPT/HCPCS: 36415; 71045; 78452; 80053; 80061; 82550; 82553; 82962; 83880; 84443; 84484; 85025; 85610; 85730; 86140; 87081; 93005; 93017; 93306; 94664; 99285; J1815; J2785